=== PATIENT | female | born 1945 | race Caucasian/White ===

== ENCOUNTER → 2018-02-10 | Outpatient (CLI) | payer MEDICARE ==
[~2018-02-10] MED LIST: ASCO100029 PO; B COTAB3 PO; CALC-131 PO; CALC1TAB53 PO; COEN400C2 PO; COQ-30CA2 PO; D 50CAP2 PO; GLUCOSAMINE1500 CO1 PO; LUTE20CA PO; MILK175C7 PO; MILK200C PO; MOBI15TA PO; NORC7.5T PO; OXYB5TAB PO; RED600TA PO; REDCAP2 PO; VITA100017 PO; VITA5000 PO; VITACAP7 PO; Z.0.COMMODE-3:1; Z.0.WALKERFRONT; [UNRECOGNIZED DRUG - CODE] PO; [UNRECOGNIZED DRUG - CODE] PO; [UNRECOGNIZED DRUG - CODE] PO
[2018-02-10 11:47] LABS: AUTOMATED NEUTROPHIL # 3.3 TH/MM3 (1.8-7.7); BASOPHIL # 0.1 TH/MM3 (0-0.2); BASOPHIL % 0.9 % (0.0-2.0); EOSINOPHIL # 0.1 TH/MM3 (0-0.4); EOSINOPHIL % 1.4 % (0.0-4.0); HEMATOCRIT 35.9 % (35.0-46.0); HEMOGLOBIN 11.8 GM/DL (11.6-15.3); LYMPH % 29.4 % (9.0-44.0); LYMPHOCYTE # 1.6 TH/MM3 (1.0-4.8); MEAN CELL VOLUME 90.9 FL (80.0-100.0); MEAN CORPUSCULAR HEMOGLOBIN 29.9 PG (27.0-34.0); MEAN CORPUSCULAR HGB CONC 32.9 % (32.0-36.0); MEAN PLATELET VOLUME 7.1 FL (7.0-11.0); MONO % 9.3 % (0.0-8.0); MONOCYTE # 0.5 TH/MM3 (0-0.9); PLATELET COUNT 311 TH/MM3 (150-450); RED BLOOD COUNT 3.95 MIL/MM3 (4.00-5.30); RED CELL DISTRIBUTION WIDTH 14.8 % (11.6-17.2); WHITE BLOOD COUNT 5.6 TH/MM3 (4.0-11.0)
[2018-02-10 12:01] LABS: PROTHROMBIN TIME - PATIENT 10.4 SEC (9.8-11.6)
[2018-02-10 12:12] LABS: ALBUMIN 4.1 GM/DL (3.4-5.0); AST (GOT) 14 U/L (15-37); BICARBONATE 30.3 MEQ/L (21.0-32.0); BLOOD UREA NITROGEN 18 MG/DL (7-18); CALCIUM 8.9 MG/DL (8.5-10.1); CHLORIDE 106 MEQ/L (98-107); CREATININE 0.77 MG/DL (0.50-1.00); GLOMERULAR FILTRATION RATE 74 ML/MIN (>89); GLUCOSE,FASTING 83 MG/DL (74-99); SODIUM (NA) 140 MEQ/L (136-145)
[2018-02-10 12:15] LABS: ALKALINE PHOSPHATASE 50 U/L (45-117); ALT (GPT) 19 U/L (10-53); TOTAL BILIRUBIN ADULT 0.6 MG/DL (0.2-1.0); TOTAL PROTEIN 7.3 GM/DL (6.4-8.2)
[2018-02-10 12:18] LABS: WESTERGREN SEDIMENTATION RATE 9 mm/hr (0-30)
--- NOTE | 2018-02-10 12:42 | RADRPT ---
EXAM DATE/TIME: 02/10/2018 12:28 [facility] COMPARISON: CHEST PA & LAT, January 17, 2015, 15:26. INDICATIONS : Evaluate for pneumonia, pneumothorax or communicable disease. MEDICAL HISTORY : None. SURGICAL HISTORY : None. ENCOUNTER: Initial ACUITY: 1 day PAIN SCORE: 0/10 LOCATION: Left upper chest FINDINGS: PA and lateral views of the chest demonstrate the lungs to be symmetrically aerated without evidence of mass, infiltrate or effusion. Calcified mediastinal and left pretracheal lymph nodes suggesting p revious granulomatous disease. The cardiomediastinal contours are unremarkable. Osseous structures are intact. CONCLUSION: No acute disease. Her Higinio Cabezas MD FACR on February 10, 2018 at 12:38 Board Certified Radiologist. This report was verified electronically.
[2018-02-10 12:55] LABS: BILIRUBIN, URINE NEG (NEG); BLOOD, URINE NEG (NEG); GLUCOSE,URINE NEG (NEG); KETONE, URINE NEG (NEG); NITRITE,URINE NEG (NEG); URINE LEUKOCYTE ESTERASE NEG (NEG)
[2018-02-10 12:58] LABS: URINE COLOR STRAW (YELLW/STRAW)
--- NOTE | 2018-02-14 00:27 | EKG ---
Date Performed: 02/10/2018 Time Performed: 11:59:19 PTAGE: 72 years EKG: Sinus rhythm NORMAL ECG NO PREVIOUS TRACING DOCTOR: Amado Gonzalez Interpretating Date/Time 02/14/2018 00:26:40
--- NOTE | 2018-02-20 12:19 | EKG ---
Date Performed: 02/10/2018 Time Performed: 11:59:19 PTAGE: 72 years EKG: Sinus rhythm NORMAL ECG NO PREVIOUS TRACING DOCTOR: Amado Gonzalez Interpretating Date/Time 02/20/2018 12:17:25
== END ==
LOC: CPRE 11:12
PROVIDERS: ATTEND Orthopaedic Surgery Sports Medicine
DX: Z01.810 Encounter for preprocedural cardiovascular examination (principal); Z01.811 Encounter for preprocedural respiratory examination; Z01.812 Encounter for preprocedural laboratory examination; Z01.818 Encounter for other preprocedural examination; M16.12 Unilateral primary osteoarthritis, left hip
CPT/HCPCS: 36415; 71046; 80053; 81001; 85025; 85610; 85652; 85730; 93005

== ENCOUNTER 2018-02-27 05:18 | Inpatient (IN) | payer MEDICARE ==
[~2018-02-27] VITALS: Ht 166.4 cm; Wt 58.4 kg
[~2018-02-27 05:18] MED LIST changes: -B COTAB3 PO; -CALC-131 PO; -COEN400C2 PO; -GLUCOSAMINE1500 CO1 PO; -MILK200C PO; -MOBI15TA PO; -NORC7.5T PO; -OXYB5TAB PO; -REDCAP2 PO; -VITA100017 PO; -VITA5000 PO; -Z.0.COMMODE-3:1; -Z.0.WALKERFRONT; -[UNRECOGNIZED DRUG - CODE] PO
[2018-02-27] MEDS ORDERED: CHLORHEXIDINE GLUCONATE 4% SOLN 120 ML BTL TOPICAL SCH (05:45)
[2018-02-27] MEDS ORDERED: METOPROLOL TARTRATE 25 MG TAB PO PRN (05:45)
[2018-02-27] MEDS ORDERED: EXPAREL PERI-ARTICULAR INJECTION (TOTAL VOL. 60 ML) P-ARTICULR SCH ×2 (05:45)
[2018-02-27] MEDS ORDERED: SODIUM CHLORID 0.9% 500 ML IV PRN (05:45)
[2018-02-27] MEDS ORDERED: DEXAMETHASONE SOD PHOS 20 MG/5 ML VIAL IV PUSH ONE (05:45)
[2018-02-27] MEDS ORDERED: CHLORHEXIDINE GLUCONATE 2 % 1 PACK (2 CLOTHS) TOPICAL PRN (05:45)
[2018-02-27] MEDS ORDERED: POVIDONE IODINE 5% (ANTISEPSIS KIT) 4 APPLICATIONS EACH NARE PRN (05:45)
[2018-02-27] MEDS ORDERED: LACTATED RINGER'S 1000 ML IV PRN (05:45)
[2018-02-27] MEDS ORDERED: SODIUM CHLORIDE 0.9% IV SCH (05:45)
[2018-02-27] MEDS ORDERED: TRANEXAMIC ACID IV SCH (05:45)
[2018-02-27] MEDS ORDERED: VANCOMYCIN 1000 MG/NS 250 ML (for <70 kg) IV SCH ×2 (05:45)
[2018-02-27] MEDS ORDERED: TRANEXAMIC PERI-ARTICULAR 3,000 MG/NS 100 ML P-ARTICULR SCH ×2 (05:45)
[2018-02-27] MEDS: POVIDONE IODINE 7.5% SCRUB 118 ML BOTTLE TOPICAL SCH ×2 (06:00→07:26)
[2018-02-27] MEDS ORDERED: VANCOMYCIN 1 GM/200 ML INJ 200 ML IV ONE (06:01)
[2018-02-27] MEDS ORDERED: GENTAMICIN SULFATE 80 MG/2 ML VIAL ONE (06:25)
[2018-02-27] MEDS ORDERED: ONDANSETRON HCL 4 MG/2 ML VIAL IVP PRN (06:30)
[2018-02-27] MEDS ORDERED: Post-op Orders (for Pharmacy) XX ONE (06:30)
[2018-02-27] MEDS ORDERED: ZOLPIDEM TARTRATE 5 MG TAB PO PRN (06:30)
[2018-02-27] MEDS ORDERED: ACETAMINOPHEN/HYDROcodone 325 MG/7.5 MG TAB PO PRN ×2 (06:30)
[2018-02-27] MEDS ORDERED: MORPHINE SULFATE 4 MG/ML INJ IV PUSH PRN (06:30)
[2018-02-27] MEDS ORDERED: diphenhydrAMINE HCL 50 MG/ML VIAL IV PUSH PRN (06:30)
[2018-02-27] MEDS ORDERED: HYDR-3288 PO (06:31)
[2018-02-27] MEDS ORDERED: ASPI81CH6 CHEW (06:32)
[2018-02-27] MEDS ORDERED: ceFAZolin INJ 1,000 MG VIAL IV ONE ×2 (07:56→12:00)
[2018-02-27] MEDS ORDERED: MIDAZOLAM HCL 2 MG/2 ML VIAL ONE (08:41)
[2018-02-27] MEDS ORDERED: *morphine SULFATE 8 MG/ML PERIprocedure ONLY ONE (08:44)
[2018-02-27] MEDS: SODIUM CHLOR 0.9% 1000 ML INJ 1,000 ML IV SCH (09:00)
--- NOTE | 2018-02-27 09:09 | MP ---
cc: Monico Paige MD DATE OF OPERATION: PREOPERATIVE DIAGNOSIS: Left hip osteoarthritis. POSTOPERATIVE DIAGNOSIS: Left hip osteoarthritis. PROCEDURE: Left total hip arthroplasty. SURGEON: Monico Paige MD LOGISTICS LOSS PREVENTION MANAGER: YIN Scott. ANESTHESIA: General. ESTIMATED BLOOD LOSS: 200 mL COMPLICATIONS: None. IMPLANTS USED: DePuy Corail size 12 press fit standard offset femoral stem, size 48 solid Amo Gription cup, 32 mm neutral highly cross-linked polyethylene liner, size 32 mm cobalt chrome head, +13 neck. JUSTIFICATION: The patient is a 72-year-old female with history of severe end-stage osteoarthritis involving the left hip. She has severe disabling pain with standing, walking ambulation, weightbearing activities, and severe pain at rest. It does interfere with activities of daily living. She has failed greater than 3 months of nonoperative conservative treatment to include medication therapy, injections, ambulatory assistive aids, home exercise program, activity modification. The patient is not overweight. X-ray of the left hip reveals severe osteoarthritis with joint space narrowing, subchondral sclerosis, subchondral cyst, osteophyte formation with subluxation. The patient was counseled as to the risks, benefits, alternatives to a total hip arthroplasty. The risks were discussed, which include, but not limited to anesthesia, bleeding, infection, damage to nerves and blood vessels, pain, stiffness, fracture dislocations, leg length discrepancies, blood clots, pulmonary embolism and even . The patient's pain was very severe. She favored the benefits over the risks. She did wish to proceed with surgery. PROCEDURE IN DETAIL: Written consent was obtained. The patient was identified by name and taken to the operating room and placed supine on the operating table. General anesthesia was administered as well as 2 grams of IV Ancef, 1 gram of IV vancomycin. Left and right feet were placed in padded traction boots. All bony prominences and pressure points were well padded. Left hip and left lower extremity prepped and draped using Isopropyl alcohol, Hibiclens solution and ChloraPrep solution. After timeout was performed, a longitudinal incision was made over the anterolateral aspect of left hip. The fascial layer was incised. Dissection was carried over tensor fascia sonia beneath the rectus femoris to allow exposure of the anterior capsule. A capsulotomy incision was performed. An oscillating saw was used to perform a femoral neck cut. The osteoarthritic femoral head and neck component was removed. A #10 blade scalpel was used to excise the labrum. Sequential reaming began at size 43 mm, was carried through to size 48 mm. A solid Amo Gription cup size 48 mm was implanted in approximately 45 degrees of abduction and 10 degrees of anteversion. There was good purchase and fixation after insertion of the cup. A screw hole eliminator was placed, followed by the neutral liner. The liner was impacted in place and tested for stability. Attention was turned to the femur where the leg was externally rotated, extended and adducted. The capsule was released off the undersurface of the greater trochanter to allow for elevation lateralization of the femur. A box cutting osteotome was used to gain entrance into the intramedullary canal of the femur, followed by canal finder and sequential broaching up to size 12. A calcar planer was used to plane the calcar. Trial head and neck combinations were evaluated and final components cemented in place. With the current components the leg could achieve external rotation of 70 degrees and extension all the way down to the ground without evidence of anterior instability or impingement. Soft tissue tension felt appropriate and fluoroscopic imaging showed appropriate implantation of components. The surgical wounds were thoroughly irrigated with sterile saline pulse lavage antibiotic impregnated solution. The fascial layer was closed with #1 Vicryl suture, subcutaneous 2-0 Vicryl suture. Skin was closed with Dermabond. Sterile dressing applied. The patient tolerated the procedure well with no intraoperative complications noted. Tushar Maria physician fitter's assistant, certified was present during the entire procedure to include patient positioning and the procedure itself. The medical necessity of physician fitter's assistant was indicated in this case due to the complexity of the procedure. He assisted with appropriate manipulation of the leg and also retraction of muscle, tendon, bone, neurovascular structures. He assisted with preparation of bone and also implantation of the prosthetic replacement. Monico Paige MD JWBrittany/MARRY , 08:24 AM , 09:08 AM
--- NOTE | 2018-02-27 10:38 | RADRPT ---
EXAM DATE/TIME: 02/27/2018 09:07 [facility] COMPARISON: No previous studies available for comparison. INDICATIONS : Post-op left hip replacement. MEDICAL HISTORY : None. SURGICAL HISTORY : Bilateral Hip Replacements ENCOUNTER: Initial ACUITY: 1 day PAIN SCORE: 0/10 LOCATION: Left Hip FINDINGS: The patient is status post a left total hip arthroplasty with a bipolar prosthesis. Prosthesis is wel l-seated. Alignment is anatomic. A fracture is not appreciated. CONCLUSION: Anatomic alignment, status post left total hip arthroplasty. Higinio Cabezas MD FACR on February 27, 2018 at 10:35 Board Certified Radiologist. This report was verified electronically.
[2018-02-27] MEDS ORDERED: DO NOT ADM ANY ANTICOAGULANT DRUGS PRN (10:45)
[2018-02-27 10:49] VITALS: BP 119/58; PULSE 62; RESP 18; TEMP 97.6; O2SAT 100
--- NOTE | 2018-02-27 11:33 | RADRPT ---
EXAM DATE/TIME: 02/27/2018 07:12 [facility] COMPARISON: No previous studies available for comparison. INDICATIONS : Left total hip replacement. MEDICAL HISTORY : None. SURGICAL HISTORY : None. ENCOUNTER: Initial ACUITY: 1 day PAIN SCORE: Non-responsive. LOCATION: Left Hip FINDINGS: 3 magnified C-arm spot views show a total hip arthroplasty in good position. No gross fracture or dis location observed. Air is seen throughout the joint. CONCLUSION: Total hip arthroplasty in good position. Xu Solis Jr., MD on February 27, 2018 at 11:30 Board Certified Radiologist. This report was verified electronically.
[2018-02-27] MEDS ORDERED: PROPOFOL 200 MG/20 ML AMP IV ONE (12:00)
[2018-02-27] MEDS ORDERED: ONDANSETRON HCL 4 MG/2 ML VIAL IV ONE (12:00)
[2018-02-27] MEDS ORDERED: ROCURONIUM INJ 50 MG/5 ML SYRINGE IV PUSH ONE (12:00)
[2018-02-27] MEDS ORDERED: PHENYLEPH/NS 1000 MCG/10 ML SYR IV ONE (12:00)
[2018-02-27] MEDS ORDERED: hydrALAZINE HCL 20 MG/ML VIAL IV ONE (12:00)
[2018-02-27] MEDS ORDERED: ePHEDrine/NS 25 MG/5 ML SYRINGE IV ONE (12:00)
[2018-02-27] MEDS ORDERED: LIDOCAINE HCL 1% PF 5 ML SYRINGE OTHER ONE (12:00)
--- NOTE | 2018-02-27 12:51 | HHI.FF ---
Face to Face Verification Diagnosis: (1) Primary localized osteoarthrosis, pelvic region and thigh Physical Therapy Gait training, Safety evaluation, Transfer training, bed to chair Hip: Total hip, Protocol: Left, Progress to weight bearing Left LE Weight Bearing: WB as tolerated Nursing RN: 3 days/week x 2 weeks Nursing: Dressing changes Dressing Changes: Daily dressing change I have seen patient hBavya Hanna on 02/27/18. My clinical findings support the need for the requested home health care services because: Limited ability to care for self High risk of falls I certify that my clinical findings support that this patient is homebound because: Post-op weakness Unsteady gait/balance Monico Maria February 27, 2018 12:51
--- NOTE | 2018-02-27 12:51 | HHI.DCPOC ---
Discharge Care Plan Diagnosis: (1) Primary localized osteoarthrosis, pelvic region and thigh Your Health Problems Are: Difficulty with ADL Goals to Promote Your Health * To prevent worsening of your condition and complications * To maintain your health at the optimal level Directions to Meet Your Goals Take your medications as prescribed Follow your dietary instruction Follow activity as directed Keep your appointments as scheduled Take your immunizations and boosters as scheduled If your symptoms worsen call your PCP, if no PCP go to Urgent Care Center or Emergency Room Smoking is Dangerous to Your Health. Avoid second hand smoke Call the 24-hour hour crisis hotline for domestic abuse at Monico Maria February 27, 2018 12:51
[2018-02-27 16:00] VITALS: BP 125/64; PULSE 87; RESP 18; TEMP 98.5; O2SAT 100
--- NOTE | 2018-02-27 16:21 | PD.CONS ---
HPI Service [facility] Consult Requested By Orthopedic service Reason for Consult Medical management Primary Care Physician Sobeida Pedroza M.D. Diagnoses: History of Present Illness Patient is a very pleasant 72-year-old female with no significant past medical history who is admitted under orthopedic service today and underwent left total hip arthroplasty. Patient state that he she had her right hip surgery done 3 years ago. For the past 6-8 months now been having increasing pain on the left hip increasing difficulty in ambulation. Which prompted the surgery. Patient currently seen postop day 0 has already been up walking around with physical therapy. Denies any pain. [facility] consulted for medical management. Review of medications patient does not take any medications except for over-the- counter multivitamins. At one point she took oxybutynin for urinary incontinence however patient states developed flutter and stopped taking this. Review of Systems Constitutional: DENIES: Diaphoretic episodes, Fatigue, Fever, Weight gain, Weight loss, Chills, Dizziness, Change in appetite, Night Sweats Endocrine: DENIES: Abnorml menstrual pattern, Heat/cold intolerance, Polydipsia , Polyuria, Polyphagia Eyes: DENIES: Blurred vision, Diplopia, Eye inflammation, Eye pain, Vision loss , Photosensitivity, Double Vision Ears, nose, mouth, throat: DENIES: Tinnitus, Hearing loss, Vertigo, Nasal discharge, Oral lesions, Throat pain, Hoarseness, Ear Pain, Running Nose, Epistaxis, Sinus Pain, Toothache, Odynophagia Respiratory: DENIES: Apneas, Cough, Snoring, Wheezing, Hemoptysis, Sputum production, Shortness of breath Cardiovascular: DENIES: Chest pain, Palpitations, Syncope, Dyspnea on Exertion , PND, Lower Extremity Edema, Orthopnea, Claudication Gastrointestinal: DENIES: Abdominal pain, Black stools, Bloody stools, Constipation, Diarrhea, Nausea, Vomiting, Difficulty Swallowing, Anorexia Genitourinary: COMPLAINS OF: Urinary incontinence Musculoskeletal: DENIES: Joint pain, Muscle aches, Stiffness, Joint Swelling, Back pain, Neck pain Integumentary: DENIES: Abnormal pigmentation, Pruritus, Rash, Nail changes, Breast masses, Breast skin changes, Nipple discharge Hematologic/lymphatic: DENIES: Bruising, Lymphadenopathy Immunologic/allergic: DENIES: Eczema, Urticaria Neurologic: DENIES: Abnormal gait, Headache, Localized weakness, Paresthesias, Seizures, Speech Problems, Tremor, Poor Balance Psychiatric: DENIES: Anxiety, Confusion, Mood changes, Depression, Hallucinations, Agitation, Suicidal Ideation, Homicidal Ideation, Delusions Past Family Social History Allergies: Coded Allergies: penicillin G (Verified Allergy, Unknown, 02/10/18) CHILD. UNKNOWN SYMPTOMS Past Medical History Urinary incontinence occasional Past Surgical History Right hip surgery 3 years ago Bilateral cataract surgery many years ago Reported Medications As outpatient multivitamins [id number] Active Ordered Medications Lovenox As needed pain meds Family History Noncontributory Social History Denies smoking alcohol or substance abuse Physical Exam Vital Signs Vital Signs Date Time Temp Pulse Resp B/P (MAP) Pulse Ox O2 Delivery O2 Flow Rate FiO2 02/27/18 10:49 97.6 62 18 119/58 (78) 100 02/27/18 09:15 97.5 66 14 118/59 (78) 99 Nasal Cannula 2 02/27/18 09:00 62 14 99/57 (71) 99 Nasal Cannula 2 02/27/18 08:45 65 17 122/82 (95) 97 Nasal Cannula 2 02/27/18 08:37 97.5 70 18 119/60 (79) 98 Nasal Cannula 4 02/27/18 06:00 98.1 66 20 148/77 (100) 100 Physical Exam GENERAL: This is a well-nourished, well-developed patient, in no apparent distress. SKIN: No rashes, HEAD: Atraumatic. Normocephalic. EYES: Pupils equal round and reactive. Extraocular motions intact. No scleral icterus. ENT: Nose without bleeding, Throat without erythema, Airway patent. NECK: Trachea midline. No JVD or lymphadenopathy. Supple, nontender, no meningeal signs. CARDIOVASCULAR: Regular rate and rhythm without murmurs, gallops, or rubs. RESPIRATORY: Clear to auscultation. Breath sounds equal bilaterally. No wheezes , rales, or rhonchi. GASTROINTESTINAL: Abdomen soft, non-tender, nondistended. No guarding. MUSCULOSKELETAL: Left hip with postop dressing in place extremities without clubbing, cyanosis, or edema. No joint tenderness, effusion, or edema noted. No calf tenderness. Negative Homans sign bilaterally. NEUROLOGICAL: Awake and alert. Cranial nerves II through XII intact. Motor and sensory grossly within normal limits. Five out of 5 muscle strength in all muscle groups. Normal speech. Imaging Last Impressions Hip and Pelvis X-Ray 02/27/18 0629 Signed Impressions: Service Date/Time: Tuesday, February 27, 2018 09:07 - CONCLUSION: Anatomic alignment , status post left total hip arthroplasty. Higinio Cabezas MD FACR Hip X-Ray 02/27/18 0000 Signed Impressions: Service Date/Time: Tuesday, February 27, 2018 07:12 - CONCLUSION: Total hip arthroplasty in good position. Xu Solis Jr., MD Assessment and Plan Assessment and Plan 72-year-old female Status post left total hip arthroplasty postop day 0 As needed pain meds Lovenox for DVT prophylaxis History of urinary incontinence. Monitor here postop Lovenox for DVT prophylaxis Discharge planning patient would like to go to sleep for [facility]. Thank you for this consult to follow patient in-house with you Discussed Condition With Patient and at bedside Maci Clark MD February 27, 2018 16:21
[2018-02-27] MEDS: VANCOMYCIN INJ 1,000 MG in SODIUM CHLOR 0.9% 250 ML INJ 250 ML IV SCH (18:24)
[2018-02-27 20:50] VITALS: BP 105/51; PULSE 90; RESP 16; TEMP 99.6; O2SAT 97
[2018-02-28] VITALS (7 sets, daily range): BP systolic 92–124; BP diastolic 50–60; PULSE 83–94; RESP 16–18; TEMP 97.9–100.1; O2SAT 95–100
[2018-02-28] MEDS: VANCOMYCIN INJ 1,000 MG in SODIUM CHLOR 0.9% 250 ML INJ 250 ML IV SCH (06:29)
[2018-02-28 07:11] LABS: HEMATOCRIT 24.8 % (35.0-46.0); HEMOGLOBIN 8.5 GM/DL (11.6-15.3); MEAN CELL VOLUME 89.8 FL (80.0-100.0); MEAN CORPUSCULAR HEMOGLOBIN 30.9 PG (27.0-34.0); MEAN CORPUSCULAR HGB CONC 34.4 % (32.0-36.0); MEAN PLATELET VOLUME 7.6 FL (7.0-11.0); PLATELET COUNT 235 TH/MM3 (150-450); RED BLOOD COUNT 2.76 MIL/MM3 (4.00-5.30)
--- NOTE | 2018-02-28 08:18 | PD.ORT.PN ---
Subjective Post Op Day #: 1 Subjective Remarks pain ok. light-headed. hypotensive. Objective Vitals Vital Signs Date Time Temp Pulse Resp B/P (MAP) Pulse Ox O2 Delivery O2 Flow Rate FiO2 02/28/18 03:25 99.0 88 18 120/60 (80) 96 02/28/18 00:00 97.9 94 17 92/52 (65) 95 02/27/18 20:50 99.6 90 16 105/51 (69) 97 02/27/18 16:00 98.5 87 18 125/64 (84) 100 02/27/18 10:49 97.6 62 18 119/58 (78) 100 02/27/18 09:15 97.5 66 14 118/59 (78) 99 Nasal Cannula 2 02/27/18 09:00 62 14 99/57 (71) 99 Nasal Cannula 2 02/27/18 08:45 65 17 122/82 (95) 97 Nasal Cannula 2 02/27/18 08:37 97.5 70 18 119/60 (79) 98 Nasal Cannula 4 I/O 02/27/18 02/27/18 02/27/18 02/28/18 02/28/18 02/28/18 07:00 15:00 23:00 07:00 15:00 23:00 Intake Total 800 ml 600 ml 480 ml Output Total 300 ml Balance 500 ml 600 ml 480 ml Intake Oral 600 ml 480 ml Other 800 ml Output Estimated Blood Loss 300 ml # Voids 2 3 # Bowel Movements 0 0 Result Diagram: 02/28/18 0630 Objective Remarks in bed, nad, concerned about hypotension dressing c/d/i ecchymosis thigh, soft neg homans nvi Assessment & Plan Ortho Post Op Day #: 1 Problem List: Assessment and Plan s/p L FELIX anterior approach wbat ok to maintain dressing unless saturated lovenox, d/c on asa 81 ice to thigh/hip anemia symptomatic - transfuse 1 unit, patient donated blood prior to procedure d/c planning to snf - amandeep f/up dr. mccall 2 weeks Monico Maria February 28, 2018 08:18
[2018-02-28] MEDS: ENOXAPARIN SODIUM 40 MG/0.4 ML SYRINGE SQ SCH (08:39)
--- NOTE | 2018-02-28 09:40 | HHI.PR ---
Subjective Remarks Follow-up for left total hip arthroplasty. Patient reports her hip pain is fairly under control. She is requesting her home vitamins to be restarted. She otherwise denies any other medical complaints including no fevers/chills, headache, chest pain, shortness of breath, or abdominal complaints. Objective Vitals Vital Signs Date Time Temp Pulse Resp B/P (MAP) Pulse Ox O2 Delivery O2 Flow Rate FiO2 02/28/18 08:22 98.7 90 18 96/55 (69) 99 02/28/18 03:25 99.0 88 18 120/60 (80) 96 02/28/18 00:00 97.9 94 17 92/52 (65) 95 02/27/18 20:50 99.6 90 16 105/51 (69) 97 02/27/18 16:00 98.5 87 18 125/64 (84) 100 02/27/18 10:49 97.6 62 18 119/58 (78) 100 I/O 02/27/18 02/27/18 02/27/18 02/28/18 02/28/18 02/28/18 07:00 15:00 23:00 07:00 15:00 23:00 Intake Total 800 ml 600 ml 480 ml 250 ml Output Total 300 ml Balance 500 ml 600 ml 480 ml 250 ml Intake Oral 600 ml 480 ml IV Total 250 ml Other 800 ml Output Estimated Blood Loss 300 ml # Voids 2 3 # Bowel Movements 0 0 Result Diagram: 02/28/18 0630 Imaging Last Impressions Hip and Pelvis X-Ray 02/27/18 0629 Signed Impressions: Service Date/Time: Tuesday, February 27, 2018 09:07 - CONCLUSION: Anatomic alignment , status post left total hip arthroplasty. Higinio Cabezas MD FACR Hip X-Ray 02/27/18 0000 Signed Impressions: Service Date/Time: Tuesday, February 27, 2018 07:12 - CONCLUSION: Total hip arthroplasty in good position. Xu Solis Jr., MD Objective Remarks GENERAL: Well-nourished, well-developed pleasant female patient in NAD. SKIN: Warm and dry. No rash. HEENT: Normocephalic. Atraumatic. Pupils equal and round. Mucous membranes pink and moist. CARDIOVASCULAR: Regular rate and rhythm. No murmur appreciated. RESPIRATORY: No accessory muscle use. Clear to auscultation. Breath sounds equal bilaterally. GASTROINTESTINAL: Abdomen soft, non-tender, nondistended. Normoactive bowel sounds x4. MUSCULOSKELETAL: No obvious deformities. Extremities without clubbing, cyanosis , or edema. Left hip surgical dressing, CDI. NEUROLOGICAL: Awake and alert. No obvious cranial nerve deficits. Motor grossly within normal limits. Moving all extremities spontaneously. Normal speech. PSYCHIATRIC: Appropriate mood and affect; insight and judgment normal. Procedures 02/27/18 - left total hip arthroplasty by Dr. Paige Medications and IVs Current Medications Medications (Trade) Dose Ordered Sig/Thang Route Start Time Stop Time Status Last Admin Lactated Ringer's 1,000 ml @ 30 mls/hr Q24H PRN IV 02/27/18 05:45 03/02/18 05:44 02/27/18 06:15 Sodium Chloride 500 ml @ 30 mls/hr [id number] PRN IV 02/27/18 05:45 03/02/18 05:44 (Lopressor) 25 mg CUFF FOLDER PRN PO 02/27/18 05:45 03/02/18 05:44 (Betadine 5% Antisepsis Kit) 1 applic CUFF FOLDER PRN EACH NARE 02/27/18 05:45 03/02/18 05:44 02/27/18 06:00 (Chlorhexidine 2% Cloth) 3 pack CUFF FOLDER PRN TOPICAL 02/27/18 05:45 03/02/18 05:44 (Betadine 7.5% Scrub) 1 applic ONCE TOPICAL 02/27/18 05:45 03/02/18 05:44 02/27/18 07:26 (Hibiclens 4% Top Soln) 1 applic ONCE TOPICAL 02/27/18 05:45 03/02/18 05:44 02/27/18 06:00 Vancomycin HCl 1000 mg/Sodium Chloride 250 ml @ 250 mls/hr CUFF FOLDER IV 02/27/18 05:45 03/02/18 05:44 Sodium Chloride 1,000 ml @ 100 mls/hr Q10H IV 02/27/18 08:30 02/28/18 11:35 (Lovenox Inj) 40 mg Q24H SQ 02/28/18 08:00 03/09/18 08:01 02/28/18 08:39 (Morphine Inj) 3 mg Q3H PRN IV PUSH 02/27/18 06:30 ([place] 7.5-325 Mg) 1 tab Q4H PRN PO 02/27/18 06:30 ([place] 7.5-325 Mg) 2 tab Q4H PRN PO 02/27/18 06:30 (Theragran M Tab) 1 tab BID PO 02/28/18 21:00 04/29/18 20:59 (Zofran Inj) 4 mg Q6H PRN IVP 02/27/18 06:30 (Colace) 100 mg BID PO 02/28/18 21:00 (Ambien) 5 mg HS PRN PO 02/27/18 06:30 (Benadryl Inj) 25 mg Q6H PRN IV PUSH 02/27/18 06:30 A/P Assessment and Plan 72-year-old female with no significant past medical history admitted to the hospital for left total hip arthroplasty done by Dr. Paige. Hospitalist consulted for medical management S/p left total hip arthroplasty: Surgery done 02/27/[address] Paige -Continue pain control with [place] prn per ortho -DVT prophylaxis with Lovenox per ortho -Continue PT, plan to discharge to rehab Anemia: Hgb 8.5 -s/p 1u pRBC transfusion (autologous donation done prior to surgery) -repeat Hgb 9.2, stable Patient requested her home vitamins be restarted, will order. DVT Prophylaxis: Lovenox sq Yanira Galvan PA-C February 28, 2018 09:40
[2018-02-28] MEDS: SODIUM CHLOR 0.9% 1000 ML INJ 1,000 ML IV SCH ×3 (11:35→19:42)
[2018-02-28] MEDS ORDERED: POLYETHYLENE GLYCOL 17 GM PKG PO PRN (13:15)
[2018-02-28] MEDS ORDERED: MILK THISTLE PO SCH (13:15)
[2018-02-28] MEDS ORDERED: LUTEIN PO SCH (13:15)
[2018-02-28] MEDS ORDERED: BETA CAROTENE 25,000 UNIT CAP PO SCH (13:15)
[2018-02-28] MEDS ORDERED: CALCIUM MAGNESIUM ZINC PO SCH (13:15)
[2018-02-28] MEDS ORDERED: NON-FORMULARY DRUG (Coenzyme Q10 (Ubidecarenone) (Coq-10) 1 CAP) PO SCH (13:15)
[2018-02-28] MEDS ORDERED: RED YEAST RICE EXTRACT PO SCH (13:15)
[2018-02-28] MEDS ORDERED: VITAMIN B CMPLX/VITC/FOLIC AC CAP PO SCH (14:00)
[2018-02-28] MEDS: CHOLECALCIFEROL (VIT D3) 5000 UNIT CAP PO SCH ×2 (17:48→19:47)
[2018-02-28] MEDS: ASCORBIC ACID 500 MG TAB PO SCH (17:48)
[2018-02-28] MEDS: DOCUSATE SODIUM 100 MG CAP PO SCH (19:47)
[2018-02-28] MEDS: MULTIVITAMINS/MINERALS THERAPEUTIC TAB PO SCH (19:47)
[2018-03-01] VITALS: BP 111/58; PULSE 105; RESP 18; TEMP 99.9; O2SAT 96
[2018-03-01 07:59] LABS: HEMATOCRIT 26.5 % (35.0-46.0); HEMOGLOBIN 9.2 GM/DL (11.6-15.3); MEAN CELL VOLUME 89.1 FL (80.0-100.0); MEAN CORPUSCULAR HEMOGLOBIN 30.8 PG (27.0-34.0); MEAN CORPUSCULAR HGB CONC 34.5 % (32.0-36.0); MEAN PLATELET VOLUME 7.7 FL (7.0-11.0); PLATELET COUNT 191 TH/MM3 (150-450); RED BLOOD COUNT 2.98 MIL/MM3 (4.00-5.30); RED CELL DISTRIBUTION WIDTH 14.3 % (11.6-17.2); WHITE BLOOD COUNT 9.9 TH/MM3 (4.0-11.0)
[2018-03-01 08:00] VITALS: BP 101/54; PULSE 90; RESP 18; TEMP 98.7; O2SAT 96
[2018-03-01 08:26] LABS: BICARBONATE 27.4 MEQ/L (21.0-32.0); CALCIUM 7.8 MG/DL (8.5-10.1); CREATININE 0.64 MG/DL (0.50-1.00)
[2018-03-01] MEDS: CHOLECALCIFEROL (VIT D3) 5000 UNIT CAP PO SCH ×2 (09:04→22:21)
[2018-03-01] MEDS: ASCORBIC ACID 500 MG TAB PO SCH (09:05)
[2018-03-01] MEDS: DOCUSATE SODIUM 100 MG CAP PO SCH ×2 (09:05→22:21)
[2018-03-01] MEDS: MULTIVITAMINS/MINERALS THERAPEUTIC TAB PO SCH ×2 (09:05→22:21)
[2018-03-01] MEDS: ENOXAPARIN SODIUM 40 MG/0.4 ML SYRINGE SQ SCH (09:06)
--- NOTE | 2018-03-01 09:33 | HHI.PR ---
Subjective Remarks Follow up for left FELIX, anemia. The patient reports feeling well today. Denies any lightheadedness, dizziness, chest pain, or shortness of breath. She had a small bowel movement yesterday. Tolerating oral intake. Vital signs stable. Plan to go to rehab tomorrow. Objective Vitals Vital Signs Date Time Temp Pulse Resp B/P (MAP) Pulse Ox O2 Delivery O2 Flow Rate FiO2 03/01/18 08:00 98.7 90 18 101/54 (70) 96 03/01/18 00:00 99.9 105 18 111/58 (75) 96 02/28/18 20:00 98.1 91 16 124/58 (80) 99 02/28/18 16:02 99.4 93 18 97/50 (66) 99 02/28/18 12:10 98.7 83 18 108/55 100 02/28/18 11:41 100.1 88 18 113/58 100 I/O 02/28/18 02/28/18 02/28/18 03/01/18 03/01/18 03/01/18 07:00 15:00 23:00 07:00 15:00 23:00 Intake Total 480 ml 690 ml 1552 ml 480 ml Balance 480 ml 690 ml 1552 ml 480 ml Intake Oral 480 ml 960 ml 480 ml IV Total 250 ml 592 ml Packed Cells 400 ml Blood Product IV Normal Saline Flush 40 ml # Voids 3 5 2 # Bowel Movements 0 0 Result Diagram: 03/01/18 0631 03/01/18 0631 Imaging Last Impressions Hip and Pelvis X-Ray 02/27/18 0629 Signed Impressions: Service Date/Time: Tuesday, February 27, 2018 09:07 - CONCLUSION: Anatomic alignment , status post left total hip arthroplasty. Higinio Cabezas MD [facility] Hip X-Ray 02/27/18 0000 Signed Impressions: Service Date/Time: Tuesday, February 27, 2018 07:12 - CONCLUSION: Total hip arthroplasty in good position. Xu Solis Jr., MD Objective Remarks GENERAL: Well-nourished, well-developed pleasant female patient in [facility]. SKIN: Warm and dry. No rash. HEENT: Normocephalic. Atraumatic. Mucous membranes pink and moist. CARDIOVASCULAR: Regular rate and rhythm. No murmur appreciated. RESPIRATORY: No accessory muscle use. Clear to auscultation. Breath sounds equal bilaterally. GASTROINTESTINAL: Abdomen soft, non-tender, nondistended. Normoactive bowel sounds x4. MUSCULOSKELETAL: No obvious deformities. Extremities without clubbing, cyanosis , or edema. Left hip surgical dressing, CDI. NEUROLOGICAL: Awake and alert. No obvious cranial nerve deficits. Motor grossly within normal limits. Moving all extremities spontaneously. Normal speech. PSYCHIATRIC: Appropriate mood and affect; insight and judgment normal. Procedures 02/27/18 - left total hip arthroplasty by Dr. Paige Medications and IVs Current Medications Medications (Trade) Dose Ordered Sig/Thang Route Start Time Stop Time Status Last Admin Lactated Ringer's 1,000 ml @ 30 mls/hr Q24H PRN IV 02/27/18 05:45 03/02/18 05:44 02/27/18 06:15 Sodium Chloride 500 ml @ 30 mls/hr [id number] PRN IV 02/27/18 05:45 03/02/18 05:44 (Lopressor) [address] [employer] PRN PO 02/27/18 05:45 03/02/18 05:44 (Betadine 5% Antisepsis Kit) [address] [employer] PRN EACH NARE 02/27/18 05:45 03/02/18 05:44 02/27/18 06:00 (Chlorhexidine 2% Cloth) [address] [employer] PRN TOPICAL 02/27/18 05:45 03/02/18 05:44 (Betadine 7.5% Scrub) 1 applic ONCE TOPICAL 02/27/18 05:45 03/02/18 05:44 02/27/18 07:26 (Hibiclens 4% Top Soln) 1 applic ONCE TOPICAL 02/27/18 05:45 03/02/18 05:44 02/27/18 06:00 Vancomycin HCl 1000 mg/Sodium Chloride 250 ml @ 250 mls/hr [facility] [employer] IV 02/27/18 05:45 03/02/18 05:44 Sodium Chloride 1,000 ml @ 100 mls/hr Q10H IV 02/27/18 08:30 02/28/18 11:35 (Lovenox Inj) 40 mg Q24H SQ 02/28/18 08:00 03/09/18 08:01 03/01/18 09:06 (Morphine Inj) 3 mg Q3H PRN IV PUSH 5/7/18 06:30 (Colon 7.5-325 Mg) 1 tab Q4H PRN PO 02/27/18 06:30 (Colon 7.5-325 Mg) 2 tab Q4H PRN PO 02/27/18 06:30 (Theragran M Tab) 1 tab BID PO 02/28/18 21:00 04/29/18 20:59 03/01/18 09:05 (Zofran Inj) 4 mg Q6H PRN IVP 02/27/18 06:30 (Colace) 100 mg BID PO 02/28/18 21:00 03/01/18 09:05 (Ambien) 5 mg HS PRN PO 02/27/18 06:30 (Benadryl Inj) 25 mg Q6H PRN IV PUSH 02/27/18 06:30 (Vitamin D3) 5,000 units BID PO 02/28/18 13:15 03/01/18 09:04 (Vitamin C) 1,000 mg DAILY PO 02/28/18 13:15 03/01/18 09:05 (Nephrocaps) 1 cap Q3W PO 02/28/18 14:00 (Miralax) 17 gm DAILY PRN PO 02/28/18 13:15 A/P Assessment and Plan 72-year-old female with no significant past medical history admitted to the hospital for left total hip arthroplasty done by Dr. Paige. Hospitalist consulted for medical management S/p left total hip arthroplasty: Surgery done 02/27/[address] 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 DVT Prophylaxis: Lovenox sq Yanira Galvan PA-C March 01, 2018 9:33 am
[2018-03-01] MEDS: SODIUM CHLOR 0.9% 1000 ML INJ 1,000 ML IV SCH ×2 (10:30→20:30)
--- NOTE | 2018-03-01 10:48 | PD.ORT.PN ---
Subjective Post Op Day #: 2 Subjective Remarks pain ok. feeling better. Objective Vitals Vital Signs Date Time Temp Pulse Resp B/P (MAP) Pulse Ox O2 Delivery O2 Flow Rate FiO2 03/01/18 08:00 98.7 90 18 101/54 (70) 96 03/01/18 00:00 99.9 105 18 111/58 (75) 96 02/28/18 20:00 98.1 91 16 124/58 (80) 99 02/28/18 16:02 99.4 93 18 97/50 (66) 99 02/28/18 12:10 98.7 83 18 108/55 100 02/28/18 11:41 100.1 88 18 113/58 100 I/O 02/28/18 02/28/18 02/28/18 03/01/18 03/01/18 03/01/18 07:00 15:00 23:00 07:00 15:00 23:00 Intake Total 480 ml 690 ml 1552 ml 480 ml Balance 480 ml 690 ml 1552 ml 480 ml Intake Oral 480 ml 960 ml 480 ml IV Total 250 ml 592 ml Packed Cells 400 ml Blood Product IV Normal Saline Flush 40 ml # Voids 3 5 2 # Bowel Movements 0 0 Result Diagram: 03/01/18 0631 03/01/18 0631 Objective Remarks ambulating with walker, nad dressing c/d/i ecchymosis thigh, soft neg homans nvi Assessment & Plan Ortho Post Op Day #: 2 Problem List: Assessment and Plan s/p L FELIX anterior approach wbat ok to maintain dressing unless saturated lovenox, d/c on asa 81 ice to thigh/hip anemia - transfused 1 unit yesterday. feeling better d/c planning to snf - [facility] f/up dr. mccall 2 weeks Monico Maria March 01, 2018 10:47
[2018-03-01 12:00] VITALS: BP 106/61; PULSE 93; RESP 18; TEMP 99.9; O2SAT 98
[2018-03-01 16:00] VITALS: BP 110/58; PULSE 98; RESP 18; TEMP 100; O2SAT 99
[2018-03-01 20:00] VITALS: BP 112/55; PULSE 96; RESP 18; TEMP 97.1; O2SAT 99
[2018-03-02] VITALS: BP 110/53; PULSE 89; RESP 18; TEMP 99.3; O2SAT 96
[2018-03-02 04:00] VITALS: BP 104/55; PULSE 79; RESP 18; TEMP 98.5; O2SAT 98
[2018-03-02 05:24] LABS: HEMATOCRIT 25.3 % (35.0-46.0); HEMOGLOBIN 8.6 GM/DL (11.6-15.3); MEAN CELL VOLUME 89.9 FL (80.0-100.0); MEAN CORPUSCULAR HEMOGLOBIN 30.8 PG (27.0-34.0); MEAN CORPUSCULAR HGB CONC 34.2 % (32.0-36.0); MEAN PLATELET VOLUME 7.4 FL (7.0-11.0); PLATELET COUNT 185 TH/MM3 (150-450); RED BLOOD COUNT 2.81 MIL/MM3 (4.00-5.30); RED CELL DISTRIBUTION WIDTH 14.2 % (11.6-17.2); WHITE BLOOD COUNT 7.6 TH/MM3 (4.0-11.0)
[2018-03-02] MEDS: SODIUM CHLOR 0.9% 1000 ML INJ 1,000 ML IV SCH (06:30)
[2018-03-02 07:55] VITALS: BP 105/56; PULSE 82; RESP 19; TEMP 98.7; O2SAT 96
[2018-03-02] MEDS: ENOXAPARIN SODIUM 40 MG/0.4 ML SYRINGE SQ SCH (08:32)
[2018-03-02] MEDS: CHOLECALCIFEROL (VIT D3) 5000 UNIT CAP PO SCH (08:32)
[2018-03-02] MEDS: MULTIVITAMINS/MINERALS THERAPEUTIC TAB PO SCH (08:32)
[2018-03-02] MEDS: ASCORBIC ACID 500 MG TAB PO SCH (08:33)
[2018-03-02] MEDS: DOCUSATE SODIUM 100 MG CAP PO SCH (08:33)
--- NOTE | 2018-03-02 08:51 | PD.ORT.PN ---
Subjective Post Op Day #: 3 Subjective Remarks pain ok. feeling better. Objective Vitals Vital Signs Date Time Temp Pulse Resp B/P (MAP) Pulse Ox O2 Delivery O2 Flow Rate FiO2 03/02/18 07:55 98.7 82 19 105/56 (72) 96 03/02/18 04:00 98.5 79 18 104/55 (71) 98 03/02/18 00:00 99.3 89 18 110/53 (72) 96 03/01/18 20:00 97.1 96 18 112/55 (74) 99 03/01/18 16:00 100.0 98 18 110/58 (75) 99 03/01/18 12:00 99.9 93 18 106/61 (76) 98 I/O 03/01/18 03/01/18 03/01/18 03/02/18 03/02/18 03/02/18 07:00 15:00 23:00 07:00 15:00 23:00 Intake Total 480 ml 550 ml 380 ml Balance 480 ml 550 ml 380 ml Intake Oral 480 ml 550 ml 380 ml # Voids 2 4 3 # Bowel Movements 0 Result Diagram: 03/02/18 0451 03/01/18 0631 Objective Remarks in bed, nad dressing c/d/i ecchymosis thigh, soft neg homans nvi Assessment & Plan Ortho Post Op Day #: 3 Problem List: Assessment and Plan s/p L FELIX anterior approach wbat ok to maintain dressing unless saturated lovenox, d/c on asa 81 ice to thigh/hip acute blood-loss anemia post operatively - transfused 1 unit Tuesday. feeling better d/c planning to snf - cleared today f/up dr. mccall 2 weeks Monico Maria March 02, 2018 08:51
--- NOTE | 2018-03-02 08:52 | HHI.PR ---
Subjective Remarks Patient states pain control. Wants to go to [facility] rehab if insurance to approve it. States that she has no dizziness, no shortness of breath. Feels good. She is urinating well. Eating well. Objective Vitals Vital Signs Date Time Temp Pulse Resp B/P (MAP) Pulse Ox O2 Delivery O2 Flow Rate FiO2 03/02/18 07:55 98.7 82 19 105/56 (72) 96 03/02/18 04:00 98.5 79 18 104/55 (71) 98 03/02/18 00:00 99.3 89 18 110/53 (72) 96 03/01/18 20:00 97.1 96 18 112/55 (74) 99 03/01/18 16:00 100.0 98 18 110/58 (75) 99 03/01/18 12:00 99.9 93 18 106/61 (76) 98 I/O 03/01/18 03/01/18 03/01/18 03/02/18 03/02/18 03/02/18 07:00 15:00 23:00 07:00 15:00 23:00 Intake Total 480 ml 550 ml 380 ml Balance 480 ml 550 ml 380 ml Intake Oral 480 ml 550 ml 380 ml # Voids 2 4 3 # Bowel Movements 0 Result Diagram: 03/02/18 0451 03/01/18 0631 Objective Remarks GENERAL: This is a well-nourished, well-developed patient, in no apparent distress. CARDIOVASCULAR: Regular rate and rhythm without murmurs, gallops, or rubs. RESPIRATORY: Clear to auscultation. Breath sounds equal bilaterally. No wheezes , rales, or rhonchi. MUSCULOSKELETAL: Extremities without clubbing, cyanosis, or edema. left hip bandage clean dry and intact. NEURO: Alert & Oriented x4 to person, place, time, situation. Procedures 02/27/18 - left total hip arthroplasty by Dr. Paige A/P Assessment and Plan 72-year-old female with no significant past medical history admitted to the hospital for left total hip arthroplasty done by Dr. Paige. Status post op day #3 left total hip arthroplasty: -Continue pain control with [place] prn per ortho Rehab per orthopedics mild encourage incentive spirometry use. 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 Today's hemoglobin 8.6. -s/p 1u pRBC transfusion (autologous donation done prior to surgery) DVT Prophylaxis: Lovenox sq Discharge Planning Medically cleared to go to rehab. anticipating alf facility Bessie Lima MD March 02, 2018 08:52
== END 2018-03-02 11:26 | DRG 470 ==
LOC: HSDI 05:18 → N06B 10:07
PROVIDERS: ADMIT Orthopaedic Surgery Sports Medicine; ATTEND Orthopaedic Surgery Sports Medicine
PROC: 0SRB029 Replacement of Left Hip Joint with Metal on Polyethylene Synthetic Substitute, Cemented, Open Approach (ICD-10-PCS; principal; 2018-02-27 06:48)
PROC: 30233N0 Transfusion of Autologous Red Blood Cells into Peripheral Vein, Percutaneous Approach (ICD-10-PCS; 2018-02-28)
DX: M16.12 Unilateral primary osteoarthritis, left hip (principal); I95.9 Hypotension, unspecified; D62 Acute posthemorrhagic anemia; Z96.641 Presence of right artificial hip joint
CPT/HCPCS: 36430; 73502; 76000; 80048; 85027; 86850; 86890; 86900; 86901; 86920; 94150; C1776; J0360; J0690; J1100; J1580; J1650; J2250; J2270; J2370; J2405; J3010; J3370; J7030; J7050; J7120; P9016